=== PATIENT | female | born 1985 | race Caucasian/White ===

== ENCOUNTER 2018-08-30 17:12 | Emergency (ER) | payer BC ==
[~2018-08-30] VITALS: Ht 172.7 cm; Wt 55.8 kg
[2018-08-30] MEDS ORDERED: TRAMADOL HCL50 MG ORAL (18:11)
[2018-08-30] MEDS ORDERED: IBUPROFEN600 MG ORAL (18:11)
[2018-08-30 18:17] VITALS: BP 120/69
--- NOTE | 2018-08-30 18:17 | Diagnostic Imaging Report ---
EXAM: XR Right Foot Complete, 3 or More Views CLINICAL HISTORY: PAIN TECHNIQUE: Frontal, lateral and oblique views of the right foot. COMPARISON: No relevant prior studies available. FINDINGS: Bones/joints: No acute fracture or malalignment. Soft tissues: Unremarkable. No radiopaque foreign body. IMPRESSION: No acute fracture or malalignment.
--- NOTE | 2018-08-30 21:12 | Emergency Room Report ---
History of Present Illness General Chief Complaint: Lower Extremity Injury Source: Patient (ISMAEL LEAL) Present Illness HPI The patient is a 33 old female presenting for right foot injury. She states that a large container of cream fell onto her right foot from approximately 4 feet high. This occurred this morning. Pain is a 6 out of 10 dull ache and does not radiate from the top of the right foot. Pain worse with movement and touch. She denies any other symptoms including numbness or tingling (ISMAEL LEAL) Allergies: Coded Allergies: PENICILLINS (Verified Allergy, Unknown, 08/30/18) Patient History Past Medical History: see triage record Pertinent Family History: none Last Menstrual Period: 08/19/2018 Now: No Reviewed Nursing Documentation: PMH: Agreed; PSxH: Agreed (ISMAEL LEAL) Nursing Documentation-PMH Past Medical History: No Stated History (ISMAEL LEAL) Review of Systems All Other Systems: negative except mentioned in HPI (ISMAEL LEAL) Physical Exam Vital Signs Date Time Temp Pulse Resp B/P (MAP) Pulse Ox O2 Delivery O2 Flow Rate FiO2 08/30/18 17:15 98.2 73 14 126/72 99 Room Air 98.2 Sp02 EP Interpretation: reviewed, normal General Appearance: no apparent distress, alert, GCS 15, non-toxic Head: normocephalic, atraumatic Musculoskeletal: back normal, gait/station normal, normal range of motion, tender - ventral surface of R foot anterior to ankle Neurologic: alert, oriented x3, responsive, motor strength/tone normal, sensory intact, speech normal Psychiatric: judgement/insight normal, memory normal, mood/affect normal, no suicidal/homicidal ideation Skin: other - ecchymosis (ISMAEL LEAL) Medical Decision Making PA Attestation Dr. Cerda is my supervising physician. Patient management was discussed with my supervising physician (ISMAEL LEAL) Diagnostic Impression: Primary Impression: Contusion, foot Qualified Codes: S90.31XA - Contusion of right foot, initial encounter ER Course The patient is a 33 old female presenting for right foot injury. Ddx considered include but not limited to sprain/strain, fracture, contusion Physical exam: Right foot has ecchymosis to the ventral surface anterior to ankle. Tender to palpation over this area. No deformity Full active range of motion of the right ankle and toes. Sensation is intact to light touch X-ray of the right foot is unremarkable She'll be discharged home with pain medication and Rice instructions. ER precautions given (ISMAEL LEAL P.A.) Other X-Ray Diagnostic Results Other X-Ray Diagnostic Results : X-Ray ordered: R foot # of Views/Limited Vs Complete: 3 View Indication: Pain EP Interpretation: Yes HERMINIO Xray: Interpretation reviewed, by supervising MD, and agrees with findings. Interpretation: no dislocation, no soft tissue swelling, no fractures Impression: No acute disease Electronically Signed by: Ismael Leal PA-C (ISMAEL [email or web address]) Other X-Ray Diagnostic Results : Electronically Signed by: Kierraibmargie documentation reviewed by me and is accurate, Rubén Cerda MD. (Rubén Cerda M.D.) Last Vital Signs Date Time Temp Pulse Resp B/P (MAP) Pulse Ox O2 Delivery O2 Flow Rate FiO2 08/30/18 18:17 98.2 88 14 120/69 100 Room Air 98.2 Status: improved (ISMAEL LEAL.A.) Disposition: HOME, SELF-CARE Condition: Improved Scripts Tramadol Hcl* (ULTRAM*) 50 Mg Tablet 50 MG ORAL Q6H PRN for For Pain, #10 TAB 0 Refills Prov: TASHIAANARISTIDESY P.A. 08/30/18 Ibuprofen* (MOTRIN*) 600 Mg Tablet 600 MG ORAL Q8H PRN for For Pain, #30 TAB 0 Refills Prov: TASHIAANISMAEL P.A. 08/30/18 Referrals: NON PHYSICIAN (PCP) Patient Instructions: Foot Contusion, RICE for Routine Care of Injuries Additional Instructions: I discussed my findings with the patient. All questions and concerns have been answered. Treatment and medication compliance have been addressed. I advised the patient that they need to follow up with PMD in 3-5 days. Return to ED if pain remains or worsens, numbness or tingling occurs, new rash is noticed, fever is noticed, or if needed for any reason. Patient verbalized understanding of discharge instructions. ISMAEL LEAL Aug 30, 2018 21:11 Rubén Cerda M.D. Aug 31, 2018 02:57
== END 2018-08-30 18:17 | disposition home or self-care (01) ==
LOC: EMR 17:45
DX: S90.31XA Contusion of right foot, initial encounter (principal); W22.8XXA Striking against or struck by other objects, initial encounter; Y92.9 Unspecified place or not applicable; Z88.0 Allergy status to penicillin
CPT/HCPCS: 99283